=== PATIENT | male | born 1955 | race Caucasian/White ===

== ENCOUNTER → 2023-07-29 14:54 | Outpatient (REF) | payer MEDICARE, SELFPAY | LOC: DHCBC HW 14:54 | PROVIDERS: ATTENDING PHYSICIAN Nurse Practitioner; FAMILY PHYSICIAN Internal Medicine | DX: R42 Dizziness and giddiness (principal) | CPT/HCPCS: 93306 ==

== ENCOUNTER → 2024-05-31 11:15 | Outpatient (REF) | payer MEDICARE, SELFPAY ==
[2024-05-31 12:13] LABS: Urine Albumin Negative (Neg - Trace); Urine Bilirubin Negative (Negative); Urine Character Clear (Clear); Urine Color Yellow; Urine Glucose Negative (Negative); Urine Ketone 1+ (Negative); Urine Leukocyte Negative (Negative); Urine Nitrite Negative (Negative); Urine Occult Blood Negative (Negative); Urine Specific Gravity 1.015 (<1.030); Urine Urobilinogen Negative (Neg - 1+)
[2024-05-31 12:18] LABS: % Basophils 1.6 % (0-2); % Eosinophils 2.3 % (0-6); % Immature Granulocytes 0.5 % (0-0.5); % Lymphocytes 24.8 % (20.5-51.1); % Monocytes 10.2 % (1.7-9.3); % Neutrophils 60.6 % (42.2-75.2); Absolute Basophils 0.1 10^3/uL (0-0.2); Absolute Eosinophils 0.1 10^3/uL (0-0.7); Absolute Lymphocytes 1.5 10^3/uL (1.2-3.4); Absolute Monocytes 0.6 10^3/uL (0.1-0.6); Absolute Neutrophils 3.7 10^3/uL (1.4-6.5); Hematocrit 44.3 % (39.0-52.0); Hemoglobin 14.4 g/dL (13.0-18.0); Mean Corp Hgb Conc. 32.5 g/dL (33.0-37.0); Mean Corpuscular Hgb 29.8 pg (27.0-31.0); Mean Corpuscular Volume 91.5 fL (80.0-94.0); Mean Platelet Volume 9.6 fL (7.4-10.4); Nucleated Red Blood Cells % 0 % (-); Platelet Count 259 10^3/uL (130-400); Red Blood Cell Count 4.84 10^6/uL (4.70-6.10); Red Cell Dist. Width 13.2 % (11.5-14.5); White Blood Cell Count 6.1 10^3/uL (4.8-10.8)
[2024-05-31 13:15] LABS: ALT (SGPT) < 10 U/L (0-50); AST (SGOT) 19 U/L (17-59); Albumin 4.6 g/dl (3.5-5.0); Alkaline Phosphatase 50 U/L (38-126); Blood Urea Nitrogen 17 mg/dl (9-20); Carbon Dioxide 27 mmol/L (22-30); Chloride 103 mmol/L (98-107); Creatine Phosphokinase 59 U/L (55-170); Glucose 91 mg/dl (70-99); Potassium 4.5 mmol/L (3.5-5.1); Sodium 138 mmol/L (135-145); Total Bilirubin 0.8 mg/dl (0.2-1.3); Total Cholesterol 202 mg/dl (50-199); Total Protein 7.2 g/dl (6.3-8.2); Triglyceride 66 mg/dl (10-149); Very Low Density Lipoprotein 13 mg/dl (0-30); eGFR > 60.00
[2024-05-31 13:25] LABS: HDL Cholesterol 124 mg/dl; LDL Cholesterol, Calculated 65 mg/dl
[2024-05-31 14:19] LABS: TSH 0.99 uIU/ml (0.47-4.68)
== END ==
LOC: REG 11:15
PROVIDERS: ATTENDING PHYSICIAN Internal Medicine
DX: G20.A1 Parkinson's disease without dyskinesia, without mention of fluctuations (principal); E78.2 Mixed hyperlipidemia; R97.20 Elevated prostate specific antigen [PSA]; C61 Malignant neoplasm of prostate; I10 Essential (primary) hypertension
CPT/HCPCS: 36415; 80053; 80061; 81003; 82550; 84153; 84443; 85025

== ENCOUNTER → 2024-10-25 13:04 | Outpatient (REF) | payer MEDICARE, SELFPAY | LOC: RAD 13:04 | PROVIDERS: ATTENDING PHYSICIAN Internal Medicine; OTHER PHYSICIAN Podiatrist | DX: M77.32 Calcaneal spur, left foot (principal) | CPT/HCPCS: 73650 ==